=== PATIENT | female | born 1985 | race Caucasian/White ===

== ENCOUNTER 2022-09-24 12:55 | Outpatient (CLI) | payer MEDICAID, SELFPAY ==
--- NOTE | 2022-09-24 13:00 | CRLHL7_ITS ---
For Patients: As a result of the Century Cures Act, medical imaging exams and procedure reports are released immediately into your electronic medical record. You may view this report before your referring provider. If you have questions, please contact your health care provider. INDICATION: First trimester scan, establish dates. COMPARISON: None. TECHNIQUE: Real-time felipe-scale imaging of the pelvis was performed. FINDINGS: Sonographic imaging demonstrates a twin living intrauterine gestation. TWIN A: The embryo demonstrates a regular cardiac rate measuring 163 beats per minute. The embryo`s crown-rump length measurement of 3.7 cm corresponds to a gestational age of 10 weeks 4 days with a sonographic due date of 04/18/2023. There is a normal-appearing yolk sac. There are no gross abnormalities noted within the embryo at this early state of development. The gestational sac has a normal appearance. The amount of fluid within the sac appears appropriate for gestational age. Gestational sac located within the lower left endometrial canal. TWIN B: The embryo demonstrates a regular cardiac rate measuring 159 beats per minute. The embryo`s crown-rump length measurement of 3.4 cm corresponds to a gestational age of 10 weeks 2 days with a sonographic due date of 04/20/2023. There is a normal-appearing yolk sac. There are no gross abnormalities noted within the embryo at this early state of development. The gestational sac has a normal appearance. The amount of fluid within the sac appears appropriate for gestational age. Gestational sac located within the right upper endometrial canal. The cervix is closed. The myometrium appears normal. The ovaries are of normal size. Corpus luteal cyst left ovary. There are no suspicious fluid collections noted in the cul-de-sac. Left fundal subchorionic hemorrhage measuring 2.4 x 2.4 x 2.6 cm. IMPRESSION: Normal first trimester dichorionic diamniotic OB ultrasound exam. Twin a: Sonographic gestational age 10 weeks 4 days and the sonographic due date 04/18/2023. Twin B: Sonographic gestational age 10 weeks 2 days and a sonographic due date 04/20/2023. Left fundal subchorionic hemorrhage measuring 2.4 x 2.4 x 2.6 cm. Dictated by Kai Restrepo MD @ 09/24/2022 2:25:00 PM (Electronically Signed)
== END 2022-09-24 12:56 | disposition home or self-care (01) ==
LOC: US 12:56
PROVIDERS: Visit Provider Advanced Practice Midwife
DX: Z34.91 Encounter for supervision of normal pregnancy, unspecified, first trimester (principal); O30.001 Twin pregnancy, unspecified number of placenta and unspecified number of amniotic sacs, first trimester; O20.9 Hemorrhage in early pregnancy, unspecified; Z3A.10 10 weeks gestation of pregnancy
CPT/HCPCS: 76801

== ENCOUNTER 2022-09-24 15:10 | Outpatient (CLI) | payer MEDICAID, SELFPAY ==
[2022-09-24 18:07] LABS: Hepatitis B Surface Antigen* Negative (Negative)
[2022-09-24 18:18] LABS: HIV 1/2/P24 Combo Screen* Negative (Negative)
[2022-09-24 18:25] LABS: Hepatitis C Virus Antibody* Negative (Negative)
[2022-09-24 19:17] LABS: Chlamydia DNA Amplified* NOT DETECTED (No Detected); GC DNA Amplified* NOT DETECTED (No Detected)
[2022-09-26 23:55] LABS: Rapid Plasma Reagin (RPR) Non Reactive (Non Reactive)
[2022-09-27 06:00] LABS: Rubella Antibody IgG 20.2 IU/mL
== END 2022-09-24 15:11 | disposition home or self-care (01) ==
PROVIDERS: Visit Provider Advanced Practice Midwife
DX: Z34.91 Encounter for supervision of normal pregnancy, unspecified, first trimester (principal); Z3A.10 10 weeks gestation of pregnancy
CPT/HCPCS: 84443; 86592; 86703; 86762; 86803; 86850; 86900; 86901; 87086; 87340; 87491; 87591

== ENCOUNTER 2023-01-21 09:23 | Outpatient (CLI) | payer BC, SELFPAY | END 2023-01-21 09:24 | disposition home or self-care (01) | LOC: NFLDREF 01-25 13:23 | PROVIDERS: Visit Provider Obstetrics & Gynecology | DX: Z34.92 Encounter for supervision of normal pregnancy, unspecified, second trimester (principal); Z3A.27 27 weeks gestation of pregnancy | CPT/HCPCS: 86592 ==

== ENCOUNTER 2023-11-27 13:11 | Emergency (ER) | payer BC, SELFPAY ==
[2023-11-27 13:27] VITALS: BP 115/76; PULSE 107; RESP 18; TEMP 36.6; O2SAT 97; BMI 32.1
--- NOTE | 2023-11-27 13:48 | ED.GENADULT ---
HPI - General Adult General Chief complaint: Cough Stated complaint: Hard, wheezy cough, chills, headache, Time Seen by Provider: 11/27/23 13:13 History of Present Illness HPI narrative: Patient is a 38 year white female with a history of asthma factor 5, who is here with her son who has had a cough and she has had a slight cough specially at night feels like she has some mucus congestion in her chest. No real shortness of breath now no wheezing she feels better getting up and around. No chest pain. No leg swelling or edema. Does take albuterol as needed. Related Data Home Medications Medication Instructions Recorded Confirmed albuterol 90 mcg/actuation aerosol 2 spray inhalation PRN 07/23/22 01/21/23 inhaler docosahexaenoic acid 200 mg mg PO 09/24/22 01/21/23 capsule ( DHA) doxylamine succinate 25 mg tablet 25 mg PO QHS PRN 10/12/22 01/21/23 (Unisom (doxylamine)) Previous Rx's Medication Instructions Recorded ondansetron 4 mg disintegrating 4 mg PO Q8H PRN nausea and 09/24/22 tablet vomiting #90 tabs Blood Glucose Meter #1 ea 12/29/22 Test Strips #100 ea 12/29/22 lancets #100 ea 12/29/22 Allergies Allergy/AdvReac Type Severity Reaction Status Date / Time No Known Drug Allergies Allergy Verified 01/21/23 09:43 Review of Systems Status of ROS: Reports: 6 or more systems reviewed and unremarkable except as noted in History and below [facility] Medical History Anxiety and depression ?F41.9 - Anxiety disorder, unspecified (ICD-10) ?F32.A - Depression, unspecified (ICD-10) Surgical History [place] teeth extracted ?K08.409 - Partial loss of teeth, unspecified cause, unspecified class (ICD-10) History of loop electrosurgical excision procedure (LEEP) of cervix ?Z98.890 - Other specified postprocedural states (ICD-10) Family History Paternal Grandfather Heart disease Stroke Paternal Grandmother Heart disease Breast cancer Cervical cancer Osteoporosis Father Basal cell carcinoma Social History Narrative: SOCIAL Education: master in education Work: stay at home 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 Lives with: and kids Pets: none Abuse: Denies past/present Special Diet: Denies Ok with a blood transfusion: yes Culture or anabaptism beliefs: denies RISK FACTORS Exercise Times/wk: yoga, walking KOMAL: 2 PHQ 9: 2 Seat Belt Use: Routinely Smoking: Denies past/present Alcohol/day: Denies while Caffeine: 1x per week Drug Use: Denies past/present Chicken Pox: Yes as a child MRSA: Denies Are you following a diet prescribed by a doctor: No Are you following a special diet: No Smoking Status: Never smoker Do you use any of these nicotine containing products: None Second hand tobacco smoke exposure: No Little interest or pleasure in doing things: not at all Feeling down, depressed, or hopeless: not at all Exam Narrative: Exam Narrative: Objective: O2 sat 97% on room air afebrile In general no apparent distress, talks in even unlabored sentences HEENT is unremarkable mouth clear throat clear neck is neck is supple Chest is clear no rales or wheezing Patient is neurologically intact moving all extremities ambulatory. Const: Vital Signs, click to edit/add: Vital Signs - 24 hr 11/27/23 13:27 Temperature 97.9 F Pulse Rate [Right Pulse Oximeter] 107 H Respiratory Rate 18 Blood Pressure [Ri ght Upper Arm] 115/76 Pulse Oximetry 97 Oxygen Delivery Me thod Room Air Course Vital Signs Vital signs: Initial Vital Signs Temperature 97.9 F 11/27/23 13:27 Temperature Source Temporal Artery Scan 11/27/23 13:27 Pulse Rate 107 H 11/27/23 13:27 Respiratory Rate 18 11/27/23 13:27 Blood Pressure 115/76 11/27/23 13:27 Blood Pressure Mean 89 11/27/23 13:27 Blood Pressure Position Sitting 11/27/23 13:27 Pulse Oximetry 97 11/27/23 13:27 Oxygen Delivery Method Room Air 11/27/23 13:27 Vital Signs Temperature 97.9 F 11/27/23 13:27 Pulse Rate 107 H 11/27/23 13:27 Respiratory Rate 18 11/27/23 13:27 Blood Pressure 115/76 11/27/23 13:27 Pulse Oximetry 97 11/27/23 13:27 Oxygen Delivery Method Room Air 11/27/23 13:27 Temperature 97.9 F 11/27/23 13:27 Pulse Rate 107 H 11/27/23 13:27 Respiratory Rate 18 11/27/23 13:27 Blood Pressure 115/76 11/27/23 13:27 Pulse Oximetry 97 11/27/23 13:27 Oxygen Delivery Method Room Air 11/27/23 13:27 Medical Decision Making MDM Narrative Medical decision making narrative: [age] year white female with a history upper respiratory infections son has a cough she has a slight cough worse at night, does not appear to have any bronchospasm at present she is on inhaler as needed. Would check cup viral studies call back with results. Rest fluids symptomatic management Tylenol as needed recheck problems or concerns. Discharge Plan Discharge Clinical Impression: Acute upper respiratory infection Patient Disposition: Home, Self-Care Condition: Stable Additional Instructions: Observation, fluids, Tylenol as needed, steam symptomatic measures hot tea. Return if problems or concerns. Follow up with primary care as needed: return to ED as needed. We will call back with the results of the viral studies Activity Level: No Restrictions Discharge Diet: Regular Prescriptions: No Action Unisom (doxylamine) 25 mg tablet 25 mg PO QHS PRN albuterol 90 mcg/actuation aerosol 2 spray inhalation PRN DHA 200 mg capsule PO ondansetron 4 mg tablet,disintegrating 4 mg PO Q8H PRN (Reason: nausea and vomiting) Qty: 90 1RF (DME) Test Strips Misc See Rx Instructions .MEDSUPPLY Qty: 100 3RF Rx Instructions: Test blood sugar 4 times daily. (DME) lancets Misc See Rx Instructions .MEDSUPPLY Qty: 100 3RF Rx Instructions: Test blood sugar 4 times daily. (DME) Blood Glucose Meter Misc See Rx Instructions .MEDSUPPLY Qty: 1 0RF Rx Instructions: As directed Follow Up/Referrals: Provider,Not a Local [Primary Care Provider] - Stand Alone Forms: [facility] Info Instructions
[2023-11-27 14:06] VITALS: BP 115/76; PULSE 107; RESP 18; TEMP 36.6
[2023-11-27 14:20] LABS: PCR FLU A Negative PCR FLU A (Negative); PCR FLU B Negative PCR FLU B (Negative); PCR RSV Negative PCR RSV (Negative); SARS PCR* Negative SARS-CoV-2 (Negative)
== END 2023-11-27 14:37 | disposition home or self-care (01) ==
LOC: ED 14:13
PROVIDERS: Emergency Provider Family Medicine
DX: J02.9 Acute pharyngitis, unspecified (principal)
CPT/HCPCS: 87631; 99282; 99283